=== PATIENT | male | born 1990 | race Caucasian/White ===

== ENCOUNTER 2023-03-18 08:36 | Day surgery (SDC) | payer BC ==
[~2023-03-18] VITALS: Ht 180.3 cm; Wt 65.8 kg
[2023-03-18 09:20] VITALS: O2SAT 99
[2023-03-18] MEDS ORDERED: BUPIVACAINE /PF 0.25% 30 ML VIAL INJ ONE (10:00)
[2023-03-18] MEDS ORDERED: fentaNYL CITRATE/PF 100 MCG/2 ML AMP ONE (10:00)
[2023-03-18] MEDS ORDERED: PROPOFOL 200MG/ 20ML VIAL (DIPRIVAN) IV ONE (10:00)
[2023-03-18] MEDS ORDERED: DEXAMETHASONE SOD PHOSPHATE 4 MG/ML VIAL ONE (10:00)
[2023-03-18] MEDS ORDERED: ROPIVACAINE 40 MG/20 ML AMP EP ONE (10:00)
[2023-03-18] MEDS ORDERED: WATER FOR IRRIGATION,STERILE 1,000 ML IRRIG.SOLN IR ONE (10:00)
[2023-03-18] MEDS ORDERED: DESFLURANE 15 MIN GAS INH ONE (10:00)
[2023-03-18] MEDS ORDERED: LR 1,000 ML IV.SOLN IV ONE (10:00)
[2023-03-18] MEDS ORDERED: HYDROmorphone 2 MG/ML VIAL ONE (10:00)
[2023-03-18] MEDS ORDERED: NS IRRIG SOLN 1000 ML IR ONE (10:00)
[2023-03-18] MEDS ORDERED: ceFAZolin SODIUM 2 GM VIAL ONE (10:00)
[2023-03-18] MEDS ORDERED: ONDANSETRON HCL 4 MG/2 ML VIAL ONE (10:00)
[2023-03-18] MEDS ORDERED: KETOROLAC TROMETHAMINE 30 MG VIAL ONE (10:00)
[2023-03-18] MEDS ORDERED: HYDROmorphone 1 MG/ML INJ. CARTRIDGE IVP ONE (12:00)
[2023-03-18] MEDS ORDERED: HYDROmorphone 1 MG/ML INJ. CARTRIDGE ONE (12:04)
[2023-03-18] MEDS: HYDROmorphone 1 MG/ML INJ. CARTRIDGE IVP PRN ×2 (12:06→12:15)
[2023-03-18] MEDS ORDERED: HYDROmorphone 2 MG/ML VIAL IVP PRN (12:15)
[2023-03-18] MEDS ORDERED: HYDROmorphone 1 MG/ML INJ. CARTRIDGE IVP PRN (12:15)
[2023-03-18] MEDS ORDERED: ONDANSETRON HCL 4 MG/2 ML VIAL IVP PRN (12:15)
[2023-03-18 15:00] VITALS: BP_SYST 141; PULSE 80; RESP 19; TEMP 98.5
[2023-03-18] MEDS ORDERED: HYDR-3917 PO (18:45)
== END 2023-03-19 15:30 | disposition home or self-care (01) ==
LOC: SDS 08:36 → SMU 08:37 → SDS 03-19 15:30
PROVIDERS: ATTEND Orthopaedic Surgery Sports Medicine
DX: S52.502A Unspecified fracture of the lower end of left radius, initial encounter for closed fracture (principal); J45.909 Unspecified asthma, uncomplicated; V87.8XXA Person injured in other specified noncollision transport accidents involving motor vehicle (traffic), initial encounter; Y93.31 Activity, mountain climbing, rock climbing and wall climbing; Y92.89 Other specified places as the place of occurrence of the external cause; Y99.8 Other external cause status
CPT/HCPCS: 24665; 64415; 87081; 76000; J3490; J1100; J1885; J2405; J2704; J2795; J3010; J1170 ×2; J7120; C1769; C1713 ×3; 76001